=== PATIENT | female | born 1990 | race Caucasian/White ===

== ENCOUNTER 2017-09-27 08:59 | Inpatient (IN) ==
[2017-09-27] MEDS ORDERED: *HR* Ketamine 500 MG/5 ML MDV IVP ONE (09:06)
[2017-09-27] MEDS ORDERED: Ketamine *HR* 500 MG/10 ML MDV ONE (09:15)
[2017-09-27] MEDS ORDERED: Ketamine *HR* 500 MG/10 ML MDV IVP ONE (09:30)
[2017-09-27] MEDS ORDERED: 0.9 % Sodium Chloride 1,000 ML IVC ONE (09:36)
[2017-09-27 09:37] LABS: Basophils # 0.1 K/mcL (0.0-0.2); Basophils % 0.9 %; Eosinophils # 0.3 K/mcL (0.0-0.6); Eosinophils % 1.9 %; Hematocrit 41.9 % (35.3-44.9); Immature Granulocytes % 0.3 % (0-4); Lymphocytes # 2.3 K/mcL (0.6-4.6); Lymphocytes % 17.7 %; Mean Corpuscular HGB Conc 33.4 g/dL (31.6-35.5); Mean Corpuscular Hemoglobin 30.1 pg (28.0-33.3); Mean Corpuscular Volume 90.1 fL (83.0-100.0); Mean Platelet Volume 9.7 fL (9.4-12.4); Monocytes % 7.9 %; Neutrophils # 9.2 K/mcL (1.6-8.9); Platelet Count 302 K/mcL (140-400); Red Blood Count 4.65 M/mcL (3.82-4.97); Red Cell Distribution Width 13.1 % (11.5-14.5); Segmented Neutrophils % 71.3 %
[2017-09-27 09:57] LABS: Bacteria,Urine None Seen per hpf (None-Few); RBC,Urine 0-3 per hpf (0-3); Squamous Epithelial Cell,Urine Many per lpf (None-Few); WBC,Urine TNTC per hpf (0-3)
[2017-09-27 09:59] LABS: Bilirubin,Urine Negative (Negative); Blood,Urine Negative (Negative); Clarity,Urine Clear (Clear); Color,Urine Yellow (Yellow); Glucose,Urine (UA) Normal (Normal); Ketones,Urine 15 mg/dL (Negative); Nitrite,Urine Negative (Negative); Protein,Urine 100 mg/dL (Neg-Trace); Specific Gravity,Urine 1.025 (1.010-1.025); Urobilinogen,Urine Normal (Normal)
[2017-09-27 10:00] LABS: Leukocyte Esterase,Urine Negative (Negative)
[2017-09-27 10:04] LABS: Acetaminophen < 1.0 mcg/mL (10-30); Ethanol < 10 mg/dL (0-10); Salicylate < 5.0 mg/dL (15.0-30.0)
--- NOTE | 2017-09-27 10:22 | Emergency Department Note ---
Overdose - Medical Records Medical records reviewed: Yes I reviewed the patient's medical records. - Lab Data Lab results reviewed: Yes I reviewed the patient's lab results. Result diagrams: 09/27/17 09:30 09/27/17 09:30 Lab Results 09/27/17 09/27/17 09/27/17 Range/Units 09:30 09:30 09:36 WBC 12.9 H (4.3-11.1) K/mcL RBC 4.65 (3.82-4.97) M/mcL Hgb 14.0 (11.5-15.4) g/dL Hct 41.9 (35.3-44.9) % MCV 90.1 (83.0-100.0) fL MCH 30.1 (28.0-33.3) pg MCHC 33.4 (31.6-35.5) g/dL RDW 13.1 (11.5-14.5) % Plt Count 302 (140-400) K/mcL MPV 9.7 (9.4-12.4) fL Immature Gran % 0.3 (0-4) % Seg Neutrophils % 71.3 % Lymphocytes % 17.7 % Monocytes % 7.9 % Eosinophils % 1.9 % Basophils % 0.9 % Neutrophils # 9.2 H (1.6-8.9) K/mcL Lymphocytes # 2.3 (0.6-4.6) K/mcL Monocytes # 1.0 (0.0-1.3) K/mcL Eosinophils # 0.3 (0.0-0.6) K/mcL Basophils # 0.1 (0.0-0.2) K/mcL Sodium 140 (136-145) mEq/L Potassium 3.6 (3.5-5.1) mEq/L Chloride 110 H (98-107) mEq/L Carbon Dioxide 18 L (23-29) mEq/L BUN 17 (6-20) mg/dL Creatinine 0.83 (0.60-1.20) mg/dL Est GFR ( Amer) > 60 (> 60) Est GFR (Non-Af Amer) > 60 (> 60) BUN/Creatinine Ratio 20 (6-26) Glucose 134 H (70-105) mg/dL Calculated Osmolality 294 (280-300) Calcium 9.2 (8.6-10.3) mg/dL Total Bilirubin 0.5 (0.3-1.0) mg/dL Direct Bilirubin 0.1 (0.0-0.2) mg/dL Indirect Bilirubin 0.4 (0.0-1.2) mg/dL AST 15 (13-39) Units/L ALT 13 (7-52) Units/L Alkaline Phosphatase 47 (34-104) Units/L Creatine Kinase 98 (30-223) Units/L Serum Total Protein 7.0 (6.4-8.9) g/dL Albumin 4.7 (3.5-5.7) g/dL Globulin 2.3 L (2.4-3.5) g/dL Albumin/Globulin Ratio 2.0 (1.1-2.2) Ur Specimen Adequacy See below A Urine Color Yellow (Yellow) Urine Clarity Clear (Clear) Urine pH 6.0 (5.0-8.0) pH Units Ur Specific [place] 1.025 (1.010-1.025) Urine Protein 100 H (Neg-Trace) mg/dL Urine Glucose (UA) Normal (Normal) mg/dL Urine Ketones 15 H (Negative) mg/dL Urine Blood Negative (Negative) Urine Nitrite Negative (Negative) Urine Bilirubin Negative (Negative) Urine Urobilinogen Normal (Normal) mg/dL Ur Leukocyte Esterase Negative (Negative) Urine Microscopic RBC 0-3 (0-3) per hpf Urine Microscopic WBC TNTC H (0-3) per hpf Ur Squamous Epith Cells Many H (None-Few) per lpf Urine Bacteria None Seen (None-Few) per hpf Urine Yeast [employer] Salicylates < 5.0 L (15.0-30.0) mg/dL Urine Opiates Screen (Ebecrk=420) ng/mL Acetaminophen < 1.0 L (10-30) mcg/mL Ur Barbiturates Screen (Anezqh=048) ng/mL Ur Phencyclidine Scrn (Cutoff=25) ng/mL Ur Amphetamines Screen (Pytjcd=7745) ng/mL U Benzodiazepines Scrn (Ttihyg=883) ng/mL Urine Cocaine Screen (Cutoff= 300) ng/mL U Marijuana (THC) Screen (Cutoff = 50) ng/mL Ethyl Alcohol < 10 (0-10) mg/dL 09/27/17 Range/Units 09:36 WBC (4.3-11.1) K/mcL RBC (3.82-4.97) M/mcL Hgb (11.5-15.4) g/dL Hct (35.3-44.9) % MCV (83.0-100.0) fL MCH (28.0-33.3) pg MCHC (31.6-35.5) g/dL RDW (11.5-14.5) % Plt Count (140-400) K/mcL MPV (9.4-12.4) fL Immature Gran % (0-4) % Seg Neutrophils % % Lymphocytes % % Monocytes % % Eosinophils % % Basophils % % Neutrophils # (1.6-8.9) K/mcL Lymphocytes # (0.6-4.6) K/mcL Monocytes # (0.0-1.3) K/mcL Eosinophils # (0.0-0.6) K/mcL Basophils # (0.0-0.2) K/mcL Sodium (136-145) mEq/L Potassium (3.5-5.1) mEq/L Chloride (98-107) mEq/L Carbon Dioxide (23-29) mEq/L BUN (6-20) mg/dL Creatinine (0.60-1.20) mg/dL Est GFR ( Amer) (> 60) Est GFR (Non-Af Amer) (> 60) BUN/Creatinine Ratio (6-26) Glucose (70-105) mg/dL Calculated Osmolality (280-300) Calcium (8.6-10.3) mg/dL Total Bilirubin (0.3-1.0) mg/dL Direct Bilirubin (0.0-0.2) mg/dL Indirect Bilirubin (0.0-1.2) mg/dL AST (13-39) Units/L ALT (7-52) Units/L Alkaline Phosphatase (34-104) Units/L Creatine Kinase (30-223) Units/L Serum Total Protein (6.4-8.9) g/dL Albumin (3.5-5.7) g/dL Globulin (2.4-3.5) g/dL Albumin/Globulin Ratio (1.1-2.2) Ur Specimen Adequacy Urine Color (Yellow) Urine Clarity (Clear) Urine pH (5.0-8.0) pH Units Ur Specific [place] (1.010-1.025) Urine Protein (Neg-Trace) mg/dL Urine Glucose (UA) (Normal) mg/dL Urine Ketones (Negative) mg/dL Urine Blood (Negative) Urine Nitrite (Negative) Urine Bilirubin (Negative) Urine Urobilinogen (Normal) mg/dL Ur Leukocyte Esterase (Negative) Urine Microscopic RBC (0-3) per hpf Urine Microscopic WBC (0-3) per hpf Ur Squamous Epith Cells (None-Few) per lpf Urine Bacteria (None-Few) per hpf Urine Yeast Salicylates (15.0-30.0) mg/dL Urine Opiates Screen Negative (Wyhkpk=367) ng/mL Acetaminophen (10-30) mcg/mL Ur Barbiturates Screen Negative (Okamnk=784) ng/mL Ur Phencyclidine Scrn Negative (Cutoff=25) ng/mL Ur Amphetamines Screen Positive H (Bkzcmf=9038) ng/mL U Benzodiazepines Scrn Positive H (Khxjfh=572) ng/mL Urine Cocaine Screen Negative (Cutoff= 300) ng/mL U Marijuana (THC) Screen Positive H (Cutoff = 50) ng/mL Ethyl Alcohol (0-10) mg/dL - Radiology Data Radiology results reviewed: Yes I reviewed the patient's radiology results. - EKG Data EKG attestation: Yes I reviewed and interpreted this EKG. EKG results narrative: EKG shows sinus tachycardia with ventricular rate of 134. [place] interval 140. QRS 100. QTC 388. Patient has no significant ST of elevations. No previous EKG for comparison. Overdose HPI - General Chief Complaint: ED Overdose Stated Complaint: Overdose Time Seen by Provider: 09/27/17 09:03 Source: patient, EMS Limitations: other Nursing Notes Reviewed: Yes Vital Signs Reviewed: Yes - History of Present Illness HPI Narrative: Patient presents for evaluation of overdose. The patient took 30 tablets of lamotrigine 25 mg tablets and 3 tablets of celecoxib. The patient initially presents very agitated with yelling and screaming as well as flight of ideas and random thought association. Patient will not stop talking and crying due to things in her past that upset her. Patient admits to suicidal ideation. An IV was established and the patient was given sedation for her excited delirium. She was given ketamine 2 mg/kg. Patient responded well and is resting comfortably in the bed. Vital signs stable. Boyfriend of 6 months is in the emergency department. States that she has severe depression and bipolar disorder. She was recently started on the lamotrigine. Her episodes of mood disorders range from not wanting to talk to anyone and locking herself in her room for a day to episodes of leia which she is exhibiting today. Most recent stressor was [place] as she was not able to spend it with her kids. Her of 10 years left her approximately 6 months ago. Patient has had problems with rehabilitation. She admits to using methamphetamines recently. A call was placed to poison control. Ketamine was discussed and seems appropriate at this time. Supportive care. Patient will eventually need psych evaluation. No other interventions at this time. - Related Data Home Medications Medication Instructions Recorded Confirmed Ergocalciferol (VITAMIN D2) 50,000 unit PO QWEEK 09/27/17 09/27/17 [Drisdol (50,000 Unit)] Melatonin 10 mg PO HS 09/27/17 09/27/17 lamoTRIgine [Lamictal] 25 mg PO DAILY 09/27/17 09/27/17 Allergies Allergy/AdvReac Type Severity Reaction Status Date / Time No Known Allergies Allergy Verified 08/07/15 08:35 Limitations: ROS unobtainable due to patients medical condition Past Medical History - Past Medical History Medical history: Reports: no medical history, other Surgical history: Reports: Psychiatric history: Reports: bipolar - Social History Smoking Status: Current every day smoker Smokeless Tobacco Status: No Alcohol use: Reports: none Drug use: Reports: cocaine, opiates, methamphetamine Physical Exam General: Patient man with episodes of crying and screaming. Head: Normocephalic Atraumatic Eyes: PERRL, EOMI ENT: Airway patent, no stridor Neck: supple, no meningismus Chest: Lungs clear to auscultation bilateral Cardiac: Regularrhythm, no murmurs, rubs or gallops Abdomen: soft, nontender, nondistended; no guarding, rebound, or tenderness to percussion Musculoskeletal: Calves symmetric, nontender, no palpable cord Skin: No rash, normal skin tone Neuro: Alert and Oriented to person; No focal deficit - General Limitations: other General appearance: alert, anxious Course - Reevaluation(s) Reevaluation #1: Labs are unremarkable. Patient will undergo further observation and management as an inpatient. Patient will need psych evaluation during her stay. - Consultations Consultation #1: Discussed with Hospitalist, Donn Burns, pt accepted Vital Signs Temperature 0 F L 09/27/17 09:07 Pulse Rate 169 09/27/17 09:07 Respiratory Rate 32 09/27/17 09:07 Blood Pressure 141/104 09/27/17 09:07 O2 Sat by Pulse Oximetry 94 09/27/17 09:07 Temperature 98.2 F 09/27/17 12:06 Pulse Rate 94 09/27/17 11:57 Respiratory Rate 20 09/27/17 12:09 Blood Pressure 146/81 09/27/17 12:09 O2 Sat by Pulse Oximetry 100 09/27/17 11:57 Oxygen Delivery Oxygen Delivery Room Air Disposition Clinical Impression: Manic episode, Suicide attempt Overdose Qualifiers: Encounter type: initial encounter Injury intent: undetermined intent Qualified Code(s): T50.904A - Poisoning by unspecified drugs, medicaments and biological substances, undetermined, initial encounter Disposition: Admitted As Inpatient Condition: Good Attestation Statement - Attestation Attestation: I examined this patient and my medical decision-making was reviewed with the Resident Physician. I agree with the documented findings, disposition and treatment plan as described except to the extent set forth below. Patient to ED with intentional overdose. Patient intentionally overdosed on trazodone, Celebrex, and in the line of methamphetamine. On EMS arrival patient is screaming and combative. She was given IM Versed. On arrival here she is awake alert. She is yelling. She is rambling about her past. Thrashing around in the bed. Tachycardic. Plan. Discussed with poison control this states symptomatic care. She is given IV ketamine for sedation. She is tolerating that well this time. Calm and sleeping in bed. Admitted to the hospitalist. Patient reevaluated prior to admission to the floor. Resting comfortably. Vital stable.[place] slip on chart.
[2017-09-27 10:25] LABS: Amphetamine Screen,Urine Positive ng/mL (Cutoff=1000); Barbiturate Screen,Urine Negative ng/mL (Cutoff=200); Benzodiazepines Screen,Urine Positive ng/mL (Cutoff=200); Cannabinoid Screen,Urine Positive ng/mL (Cutoff = 50); Cocaine Screen,Urine Negative ng/mL (Cutoff= 300); Opiate Screen,Urine Negative ng/mL (Cutoff=300); Phencyclidine Screen,Urine Negative ng/mL (Cutoff=25)
[2017-09-27 10:36] LABS: Alanine Aminotransferase 13 Units/L (7-52); Albumin 4.7 g/dL (3.5-5.7); Alkaline Phosphatase 47 Units/L (34-104); Aspartate Amino Transferase 15 Units/L (13-39); BUN/Creatinine Ratio 20 (6-26); Bilirubin,Direct 0.1 mg/dL (0.0-0.2); Bilirubin,Indirect 0.4 mg/dL (0.0-1.2); Bilirubin,Total 0.5 mg/dL (0.3-1.0); Blood Urea Nitrogen 17 mg/dL (6-20); Calcium 9.2 mg/dL (8.6-10.3); Carbon Dioxide 18 mEq/L (23-29); Chloride 110 mEq/L (98-107); Creatine Kinase 98 Units/L (30-223); Globulin 2.3 g/dL (2.4-3.5); Glucose 134 mg/dL (70-105); Osmolality,Calculated 294 (280-300); Potassium 3.6 mEq/L (3.5-5.1); Sodium 140 mEq/L (136-145); eGFR For African Americans > 60 (> 60); eGFR For Non-African Americans > 60 (> 60)
[2017-09-27] MEDS ORDERED: Naloxone 0.4 MG/ML INJ IVP PRN (12:39)
--- NOTE | 2017-09-27 12:44 | Internal Med History&Physical ---
<Donn Burns J - Last Filed: 09/27/17 21:34> Date of Encounter: 09/27/17 Time of Encounter: 12:43 Assessment and Plan (1) Suicide attempt Status: Acute Patient attempted suicide this morning after starting amphetamines. She is admitted with an overdose of Lamictal taking approximately 30 tablets as well as 3 tablets of Celebrex because voices in her head told her to do so. Poison control called no further actions to be done with the exception of monitoring. Patient is very manic upon arrival to the emergency department and required ketamine for sedation. She is now alert and calm her my assessment however does go in and out of some mild leia, pulse appear flighty and incoherent at times. [id number] sitter Psychiatric consultation, spoke with psychiatrist was agreed to see the patient today (2) Overdose Status: Acute See plan above Qualifiers: Encounter type: initial encounter Injury intent: undetermined intent Qualified Code(s): T50.904A - Poisoning by unspecified drugs, medicaments and biological substances, undetermined, initial encounter (3) Manic episode Status: Acute Has improved this time however, continue to monitor due to the fact the patient also ingested amphetamines this morning. (4) DVT prophylaxis Status: Acute Heparin 5000 units subcutaneous twice a day Internal Medicine - H&P: HPI Chief complaint: SUICIDE ATTEMPT Admitted From: Home Plans for Post Hospital Care: Home History of present illness: Ms. Jacinto is a 26 year old female following a suicide attempt. The patient was reporting taking 30 tablets of Lamictal and Celebrex. Has a history of bipolar depression. However, she reports that she snorted amphetamine this morning and began to hear voices. Urine drug screen positive for methamphetamines, benzodiazepines and marijuana. He reports that the Voices resulted in suicide attempt. Poison Control Center was consulted while patient in the emergency department and recommended further monitoring. Initially upon presentation the patient is very manic and required ketamine for sedation. Upon my assessment she is calm and cooperative, denies any current auditory hallucinations but continues to admit to suicidal ideation. Past Med Surg Social Fam HX - Past Medical History Medical history: no medical history, other Psychiatric history: bipolar - Past Surgical History Surgical History: - Social History Smoking Status: Current every day smoker Smokeless Tobacco Status: No Alcohol use: none Drug use: cocaine, opiates, methamphetamine - Additional Family History Additional family history: Noncontributory Internal Medicine - H&P: Meds lamoTRIgine [Lamictal] 25 mg PO DAILY 09/27/17 [History] DiphenhydraMINE [Benadryl] 25 mg PO HS PRN capsule 09/28/17 [Rx] Venlafaxine XR (24 HR) [Effexor XR] 75 mg PO DAILY 30 Days #30 cap.er.24h [Rx] hydrOXYzine pamoate [HydrOXYzine Pamoate] 25 mg PO TID PRN 30 Days #90 capsule 10/04/17 [Rx] 3 Allergy/AdvReac Type Severity Reaction Status Date / Time No Known Allergies Allergy Verified 08/07/15 08:35 All Systems PM: A 10-system review of systems was performed and is negative for pertinent findings except as documented above in the HPI. Review of systems: REVIEW OF SYSTEMS GENERAL: Negative for any nausea, vomiting, fevers, chills, or weight loss. NEUROLOGIC: Negative for any blurry vision, blind spots, double vision, facial asymmetry, dysphagia, dysarthria, hemiparesis, hemisensory deficits, vertigo, ataxia. HEENT: Negative for any head trauma, neck trauma, neck stiffness, photophobia, phonophobia, sinusitis, rhinitis. CARDIAC: Negative for any chest pain, dyspnea on exertion, paroxysmal nocturnal dyspnea, peripheral edema. PULMONARY: Negative for any shortness of breath, wheezing, COPD, or TB exposure. GASTROINTESTINAL: Negative for any abdominal pain, nausea, vomiting, bright red blood per rectum, melena. GENITOURINARY: Negative for any dysuria, hematuria, incontinence. INTEGUMENTARY: Negative for any rashes, cuts, insect bites. RHEUMATOLOGIC: Negative for any joint pains, photosensitive rashes, history of vasculitis or kidney problems. HEMATOLOGIC: Negative for any abnormal bruising, frequent infections or bleeding. Psychiatric assessment: Positive for auditory hallucinations, suicidal ideation and suicidal attempt. - Constitutional Vitals: Temp Pulse Resp BP Pulse Ox 98.2 F 94 20 146/81 100 09/27/17 12:06 09/27/17 11:57 09/27/17 12:09 09/27/17 12:09 09/27/17 11:57 General appearance: Present: cooperative, A&O X 3, no acute distress, answers questions appropriately Exam: PHYSICAL EXAMINATION: GENERAL: The patient is a well-developed, well-nourished male in no apparent distress. He is alert and oriented x3. VITAL SIGNS: Temperature 98.0, respiratory rate of 20 and 100% on 2 L nasal cannula. Blood pressure 106/81 HEENT: Head is normocephalic and atraumatic. Extraocular muscles are intact. Pupils are equal, round, and reactive to light and accommodation. Nares appeared normal. Mouth is well hydrated and without lesions. Mucous membranes are moist. Posterior pharynx clear of any exudate or lesions. NECK: Supple. No carotid bruits. No lymphadenopathy or thyromegaly. LUNGS: Clear to auscultation. HEART: Regular rate and rhythm without murmur. ABDOMEN: Soft, nontender, and nondistended. Positive bowel sounds. No hepatosplenomegaly was noted. EXTREMITIES: Without any cyanosis, clubbing, rash, lesions or edema. NEUROLOGIC: Cranial nerves II through XII are grossly intact. PSYCHIATRIC: Patient appears mildly manic, gently rocking back and forth in bed. She is alert and participatory to exam. She does not appear to have adequate insight or judgment. Thought processes are often flaky and incoherent , and somewhat inappropriate to situation. SKIN: No ulceration or induration present. Internal Med - H&P Results - Labs CBC & Chem 7: 09/27/17 09:30 09/27/17 09:30 <Marilin Dewitt - Last Filed: 10/22/17 08:20> Date of Encounter: 10/22/17 Internal Medicine - H&P: HPI History of present illness: Ms. Jacinto is a 26 year old female All Systems PM: A 10-system review of systems was performed and is negative for pertinent findings except as documented above in the HPI. - Constitutional Vitals: Temp Pulse Resp BP Pulse Ox 98.0 F 83 16 100/66 99 09/28/17 15:32 09/28/17 15:32 09/28/17 15:32 09/28/17 15:32 09/28/17 15:32 Internal Med - H&P Results - Labs CBC & Chem 7: 09/28/17 04:26 09/28/17 04:26 - Attending Attestation I personally and independently interviewed and examined the patient with [employer], and I reviewed the patient's medical record with her. I am in agreement with the assessment and proposed treatment plan. I discussed my findings and recommendation with the patient and answer all questions. The patient's medical records were edited to accurately reflect this encounter.
[2017-09-27] MEDS: 0.9 % Sodium Chloride 1,000 ML IVC SCH ×2 (14:01→23:15)
[2017-09-27] MEDS: Nicotine 14 MG PATCH.TD24 TD SCH (15:54)
[2017-09-27] MEDS: *HR* Heparin 5,000 UNIT/ML VIAL SQ SCH (18:09)
[2017-09-28 06:10] LABS: Basophils # 0.1 K/mcL (0.0-0.2); Basophils % 0.9 %; Eosinophils # 0.5 K/mcL (0.0-0.6); Hematocrit 34.3 % (35.3-44.9); Immature Granulocytes % 0.3 % (0-4); Lymphocytes % 39.9 %; Mean Corpuscular HGB Conc 32.7 g/dL (31.6-35.5); Mean Corpuscular Hemoglobin 30.4 pg (28.0-33.3); Mean Corpuscular Volume 93.2 fL (83.0-100.0); Mean Platelet Volume 10.4 fL (9.4-12.4); Monocytes # 0.9 K/mcL (0.0-1.3); Monocytes % 11.4 %; Platelet Count 218 K/mcL (140-400); Red Blood Count 3.68 M/mcL (3.82-4.97); Red Cell Distribution Width 13.2 % (11.5-14.5); Segmented Neutrophils % 40.5 %
[2017-09-28 06:11] LABS: Hemoglobin 11.2 g/dL (11.5-15.4)
[2017-09-28 06:19] LABS: Alanine Aminotransferase 10 Units/L (7-52); Albumin 3.7 g/dL (3.5-5.7); Albumin/Globulin Ratio 1.9 (1.1-2.2); Alkaline Phosphatase 38 Units/L (34-104); Aspartate Amino Transferase 11 Units/L (13-39); BUN/Creatinine Ratio 19 (6-26); Bilirubin,Total 0.5 mg/dL (0.3-1.0); Blood Urea Nitrogen 12 mg/dL (6-20); Calcium 8.4 mg/dL (8.6-10.3); Carbon Dioxide 23 mEq/L (23-29); Chloride 114 mEq/L (98-107); Glucose 97 mg/dL (70-105); Osmolality,Calculated 290 (280-300); Potassium 3.7 mEq/L (3.5-5.1); Sodium 140 mEq/L (136-145); Total Protein 5.7 g/dL (6.4-8.9); eGFR For African Americans > 60 (> 60); eGFR For Non-African Americans > 60 (> 60)
[2017-09-28] MEDS: Nicotine 14 MG PATCH.TD24 TD SCH (08:14)
[2017-09-28] MEDS: *HR* Heparin 5,000 UNIT/ML VIAL SQ SCH (08:15)
[2017-09-28] MEDS ORDERED: Nystatin Cream 15 GM TUBE TP SCH (09:00)
--- NOTE | 2017-09-28 14:47 | Discharge Summary ---
Date of Encounter: 09/28/17 Time of Encounter: 09:00 - Discharge Diagnosis (1) Overdose Priority: Primary Status: Acute Comments: Patient reports knowingly taken 30 tablets of Lamictal and Celebrex. She also admits to snorting amphetamines the morning of arrival. She reports the onset of auditory hallucinations after amphetamine use. Patient reports that the voices that she hears told her to kill herself, she, however, declines wanting to harm herself. Urine drug screens positive for methamphetamine, benzodiazepines, and marijuana. Poison control had been consulted by ER physicians, they recommend continued monitoring. In the emergency department, patient was very manic and required ketamine for sedation. Patient is calm, cooperative during assessment this morning. She is hesitant to answer questions regarding her hallucinations. Her fiance is at bedside and answers most questions. Patient is been evaluated by psychiatry, I appreciate his consultation and recommendations. Patient will be admitted to mental health unit for evaluation. Qualifiers: Encounter type: initial encounter Injury intent: undetermined intent Qualified Code(s): T50.904A - Poisoning by unspecified drugs, medicaments and biological substances, undetermined, initial encounter (2) Auditory hallucinations Priority: Secondary Status: Acute Comments: Patient reports hearing a mixture of female and male voices. She reports that they call her "dumb bitch", they say, "keep doing what you're doing and stop what you're doing', and "kill yourself." Plan as above. (3) Manic episode Priority: Secondary Status: Chronic Comments: Patient's fiance at bedside states the patient cycles approximately every 3 weeks. She states that she will be manic, and she cries and stays in bed for 2 days and is angry, agitated, accuses him of various wrong dose his Coumadin. He states then she goes back to good for a few days of the cycle begins again. He reports the patient has been on multiple medications, medications and been changed frequently. Currently she only reports Lamictal as a medication she takes at home. Patient will be observed on 1A. (4) Suicide attempt Priority: Secondary Status: Acute Comments: Plan as above. (5) DVT prophylaxis Priority: Secondary Status: Acute Comments: Heparin subcutaneous. - Discharge Medications Home Medications: Ergocalciferol (VITAMIN D2) [Drisdol (50,000 Unit)] 50,000 unit PO QWEEK [History] Melatonin 10 mg PO HS 09/27/17 [History] lamoTRIgine [Lamictal] 25 mg PO DAILY 09/27/17 [History] Calcium Carbonate [Tums] 1,000 mg PO TID tab.chew 09/28/17 [Rx] DiphenhydraMINE [Benadryl] 25 mg PO HS PRN capsule 09/28/17 [Rx] Nicotine Patch [Nicoderm] 14 mg TD DAILY patch.td24 09/28/17 [Rx] Nystatin Cream [Mycostatin Cream] 1 appl TP BID tube 09/28/17 [Rx] Allergies/Adverse Reactions: 3 Allergy/AdvReac Type Severity Reaction Status Date / Time No Known Allergies Allergy Verified 08/07/15 08:35 Date of admission: 09/27/17 12:39 Primary care physician: PCP NONE Consults: 09/27/17 13:40 Consult to [facility] [CONS] Routine Reason for SW Consult: Drug abuse Discharging clinician: Alina Ayala Anticipated date of discharge: 09/28/17 - Patient Status Disposition: Transfer Psychiatric Hosp Condition: Good Functional capacity at discharge: independent ambulation Overall status at discharge: patient is not back to baseline - Discharge Instructions Follow Up With: NONE,PCP [Primary Care Provider] - Additional Instructions: Pt to be discharged to for evaulation. - Diet and Activity Activity: increase activity as tolerated Diet: advance to your usual diet Hospital course: Ms. Jacinto is a 26 year old female with significant medical history of bipolar disorder, mood disorder. Patient presents to the emergency department with complaint of suicide attempt. Patient was manic on arrival and required ketamine for sedation. Patient took approximately 30 Celebrex and Lamictal after "the voices" told her to kill herself. Patient reports recent history of auditory hallucinations, denies visual hallucinations. Patient denies headache , nausea, vomiting, dizziness, blurred vision, abdominal pain, chest pain or shortness of breath. Patient will be admitted to his mental health unit for observation and evaluation. Patient is stable and appropriate for discharge. - Time Spent with Patient Total time spent providing and/or coordinating discharge services: Less than 30 minutes - Constitutional Vitals: Temp Pulse Resp BP Pulse Ox 98.0 F 77 16 92/55 98 09/28/17 11:40 09/28/17 11:40 09/28/17 11:40 01/02/18 11:40 09/28/17 11:40 General appearance: Present: cooperative, A&O X 3, no acute distress, answers questions appropriately - Head Head exam: Present: atraumatic, normal inspection, normocephalic - Eye Eye exam: Present: normal appearance, conjuntiva pink, sclera anicteric - Neck Neck exam general surgery: Present: normal inspection, supple, trachea midline. Absent: lymphadenopathy, tenderness - Respiratory Respiratory exam: Present: CTAB. Absent: accessory muscle use, chest wall tenderness, decreased breath sounds, rales, respiratory distress, rhonchi, wheezes - Cardiovascular Cardiovascular exam: Present: RRR, +S1, +S2. Absent: diastolic murmur, gallop, rubs, systolic murmur - GI/Abdominal GI/Abdominal exam: Present: normal bowel sounds, soft. Absent: distended, hepatomegaly, tenderness - Extremities Exam Extremities exam: Present: normal capillary refill, normal inspection, warm, radial pulses palpable and symmetrical. Absent: calf tenderness, cyanotic, pedal edema, tenderness - Neurological Exam Neurological exam: Present: alert, oriented X3, no focal deficits. Absent: facial droop, speech deficit - Skin Skin exam: Present: dry, intact, normal color, warm. Absent: rash
[2017-09-28 15:32] VITALS: BP 100/66
--- NOTE | 2017-09-28 16:44 | Electrocardiograph Report ---
[address] [address] Test Date: 2017-09-27 Pat Name: Lety Jacinto Department: 102 Room: 3B24 Gender: F Regular Senior Care Provider: : [id number] Requested By: Mitali See Order Number: [id number] Reading MD: Cole Neri Measurements Intervals [place] Rate: 134 P: 84 PA: 140 QRS: 84 QRSD: 100 T: 66 QT: 309 QTc: 388 Interpretive Statements SINUS TACHYCARDIA INCOMPLETE RIGHT BUNDLE BRANCH BLOCK NONSPECIFIC T-WAVE ABNORMALITY Electronically Signed On 09-28-2017 16:43:17 EST by Cole Neri
== END 2017-09-28 16:20 | DRG 817 ==
LOC: 3BNU 08:59 → EMEROO 08:59 → 3BNU 12:25
PROVIDERS: ADMIT Nurse Practitioner; ATTEND Registered Nurse

== ENCOUNTER 2021-05-29 17:40 | Inpatient (IN) ==
[2021-05-29 18:30] LABS: Basophils # 0.1 K/mcL (0.0-0.2); Basophils % 0.8 %; Eosinophils # 0.2 K/mcL (0.0-0.6); Eosinophils % 1.6 %; Hematocrit 40.1 % (35.3-44.9); Hemoglobin 13.9 g/dL (11.5-15.4); Immature Granulocytes % 0.3 % (0-4); Lymphocytes % 22.9 %; Mean Corpuscular HGB Conc 34.7 g/dL (31.6-35.5); Mean Corpuscular Hemoglobin 30.7 pg (28.0-33.3); Mean Corpuscular Volume 88.5 fL (83.0-100.0); Monocytes % 7.6 %; Neutrophils # 8.7 K/mcL (1.6-8.9); Platelet Count 296 K/mcL (140-400); Red Blood Count 4.53 M/mcL (3.82-4.97); Red Cell Distribution Width 13.5 % (11.5-14.5); Segmented Neutrophils % 66.8 %
[2021-05-29 18:52] LABS: Bacteria,Urine Few per hpf (None-Few); Bilirubin,Urine Negative (Negative); Blood,Urine Negative (Negative); Clarity,Urine Clear (Clear); Color,Urine Light-Yellow (Yellow); Glucose,Urine (UA) Normal (Normal); Ketones,Urine Negative (Negative); Leukocyte Esterase,Urine Trace (Negative); Mucus,Urine Few per lpf (None-Few); Nitrite,Urine Negative (Negative); PH,Urine 6.5 pH Units (5.0-8.0); Protein,Urine Negative (Neg-Trace); RBC,Urine 0-3 per hpf (0-3); Specific Gravity,Urine 1.012 (1.010-1.025); Squamous Epithelial Cell,Urine Few per hpf (None-Few); Urobilinogen,Urine Normal (Normal); WBC,Urine 0-3 per hpf (0-3)
[2021-05-29 19:57] LABS: Acetaminophen < 10 mcg/mL (10-20); BUN/Creatinine Ratio 6 (6-26); Blood Urea Nitrogen 4 mg/dL (6-20); Calcium 9.2 mg/dL (8.6-10.3); Carbon Dioxide 20 mEq/L (23-29); Chloride 107 mEq/L (98-107); Ethanol < 10 mg/dL (Less than 10); Glucose 104 mg/dL (70-105); Osmolality,Calculated 285 (280-300); Potassium 3.4 mEq/L (3.5-5.1); Salicylate < 2.5 mg/dL (15.0-30.0); Sodium 139 mEq/L (136-145); eGFR For African Americans > 60 (> 60); eGFR For Non-African Americans > 60 (> 60)
[2021-05-29 20:35] LABS: Amphetamine Screen,Urine Negative ng/mL (Cutoff=1000); Barbiturate Screen,Urine Negative ng/mL (Cutoff=200); Benzodiazepines Screen,Urine Negative ng/mL (Cutoff=200); Cannabinoid Screen,Urine Negative ng/mL (Cutoff = 50); Cocaine Screen,Urine Negative ng/mL (Cutoff= 300); Opiate Screen,Urine Negative ng/mL (Cutoff=300); Phencyclidine Screen,Urine Negative ng/mL (Cutoff=25)
[2021-05-29 22:43] LABS: Influenza A PCR Negative (Negative); Influenza B PCR Negative (Negative); Resp. Syncytial Virus PCR Negative (Negative)
[2021-05-29 22:50] LABS: SARS-CoV-2 by PCR (In House) Negative (Negative)
[2021-05-29] MEDS ORDERED: Haloperidol Lactate 5 MG/ML VIAL IM PRN (23:13)
[2021-05-29] MEDS ORDERED: QUEtiapine Fumarate 25 MG TABLET PO PRN (23:13)
[2021-05-29] MEDS ORDERED: *HR* LORazepam 2 MG/ML VIAL IM PRN (23:13)
[2021-05-29] MEDS ORDERED: Acetaminophen 325 MG TABLET PO PRN (23:13)
[2021-05-29] MEDS ORDERED: hydrOXYzine pamoate 25 MG CAPSULE PO PRN (23:13)
[2021-05-29] MEDS ORDERED: *HR* LORazepam 1 MG TABLET PO PRN (23:13)
[2021-05-29] MEDS ORDERED: haloperidoL 5 MG TABLET PO PRN (23:13)
[2021-05-29] MEDS ORDERED: Ibuprofen 400 MG TABLET PO PRN (23:13)
[2021-05-30] MEDS: Nicotine 21 MG PATCH.TD24 TD SCH (09:15)
[2021-05-30] MEDS ORDERED: Mag Hydrox/Al Hydrox/Simeth 30 ML UDC PO PRN (09:15)
[2021-05-30] MEDS ORDERED: MOM Conc 10 ML UD.LIQ PO PRN (09:15)
[2021-05-31] MEDS: Nicotine 21 MG PATCH.TD24 TD SCH (09:20)
[2021-06-01] MEDS: Nicotine 21 MG PATCH.TD24 TD SCH (10:02)
[2021-06-02] MEDS: Nicotine 21 MG PATCH.TD24 TD SCH (08:48)
[2021-06-02 09:40] VITALS: BP 116/79; PULSE 84; TEMP 98.1; O2SAT 97
== END 2021-06-02 12:30 | disposition home or self-care (01) | DRG 751 ==
LOC: EMEROOARM 17:40 → 1ANU 23:13
PROVIDERS: ADMIT Psychiatry & Neurology Psychiatry; ATTEND Psychiatry & Neurology Psychiatry

== ENCOUNTER 2021-07-11 18:50 | Inpatient (IN) ==
[2021-07-11 19:41] LABS: Basophils # 0.1 K/mcL (0.0-0.2); Eosinophils # 0.3 K/mcL (0.0-0.6); Eosinophils % 2.9 %; Hematocrit 39.5 % (35.3-44.9); Hemoglobin 13.2 g/dL (11.5-15.4); Immature Granulocytes % 0.2 % (0-4); Lymphocytes # 2.9 K/mcL (0.6-4.6); Lymphocytes % 27.8 %; Mean Corpuscular HGB Conc 33.4 g/dL (31.6-35.5); Mean Corpuscular Hemoglobin 30.1 pg (28.0-33.3); Monocytes # 0.8 K/mcL (0.0-1.3); Monocytes % 7.3 %; Neutrophils # 6.4 K/mcL (1.6-8.9); Platelet Count 248 K/mcL (140-400); Red Blood Count 4.39 M/mcL (3.82-4.97); Segmented Neutrophils % 60.8 %; White Blood Count 10.5 K/mcL (4.3-11.1)
[2021-07-11 19:43] LABS: Bacteria,Urine Few per hpf (None-Few); Bilirubin,Urine Negative (Negative); Blood,Urine Large (Negative); Clarity,Urine Clear (Clear); Color,Urine Light-Yellow (Yellow); Glucose,Urine (UA) Normal (Normal); Ketones,Urine Negative (Negative); Leukocyte Esterase,Urine Moderate (Negative); Mucus,Urine Few per lpf (None-Few); Nitrite,Urine Negative (Negative); Protein,Urine Negative (Neg-Trace); RBC,Urine 0-3 per hpf (0-3); Specific Gravity,Urine 1.009 (1.010-1.025); Squamous Epithelial Cell,Urine Few per hpf (None-Few); Urobilinogen,Urine Normal (Normal)
[2021-07-11 19:52] LABS: Amphetamine Screen,Urine Negative ng/mL (Cutoff=1000); Barbiturate Screen,Urine Negative ng/mL (Cutoff=200); Benzodiazepines Screen,Urine Negative ng/mL (Cutoff=200); Cannabinoid Screen,Urine Negative ng/mL (Cutoff = 50); Cocaine Screen,Urine Negative ng/mL (Cutoff= 300); Opiate Screen,Urine Negative ng/mL (Cutoff=300); Phencyclidine Screen,Urine Negative ng/mL (Cutoff=25)
[2021-07-11 20:06] LABS: Acetaminophen < 10 mcg/mL (10-20); Alanine Aminotransferase 9 Units/L (7-52); Albumin 4.3 g/dL (3.5-5.7); Albumin/Globulin Ratio 1.9 (1.1-2.2); Alkaline Phosphatase 58 Units/L (34-104); Aspartate Amino Transferase 10 Units/L (13-39); BUN/Creatinine Ratio 13 (6-26); Bilirubin,Indirect 0.3 mg/dL (0.0-1.0); Bilirubin,Total 0.3 mg/dL (0.3-1.0); Blood Urea Nitrogen 8 mg/dL (6-20); Calcium 8.9 mg/dL (8.6-10.3); Carbon Dioxide 24 mEq/L (23-29); Chloride 109 mEq/L (98-107); Chol/HDL Ratio 5.1 (0-4.9); Cholesterol 180 mg/dL (< 200); Ethanol < 10 mg/dL (Less than 10); Globulin 2.3 g/dL (2.4-3.5); Glucose 103 mg/dL (70-105); HDL Cholesterol 35 mg/dL (40-59); LDL Cholesterol,Calculated 112 mg/dL (< 100); Osmolality,Calculated 289 (280-300); Potassium 3.6 mEq/L (3.5-5.1); Salicylate < 2.5 mg/dL (15.0-30.0); Sodium 140 mEq/L (136-145); Total Protein 6.6 g/dL (6.4-8.9); Triglycerides 164 mg/dL (< 150); eGFR For African Americans > 60 (> 60); eGFR For Non-African Americans > 60 (> 60)
[2021-07-11 20:16] LABS: Thyroid Stimulating Hormone 0.507 mcIU/mL (0.340-5.600)
[2021-07-11 21:17] LABS: Estimated Average Glucose 108 mg/dl; Hemoglobin A1C 5.4 %
[2021-07-12 00:50] LABS: Influenza A PCR Negative (Negative); Influenza B PCR Negative (Negative); Resp. Syncytial Virus PCR Negative (Negative)
[2021-07-12 00:52] LABS: SARS-CoV-2 by PCR (In House) Negative (Negative)
[2021-07-12] MEDS ORDERED: Haloperidol Lactate 5 MG/ML VIAL IM PRN (01:09)
[2021-07-12] MEDS ORDERED: *HR* LORazepam 2 MG/ML VIAL IM PRN (01:09)
[2021-07-12] MEDS ORDERED: MOM Conc 10 ML UD.LIQ PO PRN (08:25)
[2021-07-12] MEDS ORDERED: Mag Hydrox/Al Hydrox/Simeth 30 ML UDC PO PRN (08:25)
[2021-07-12] MEDS: Ziprasidone 20 MG CAPSULE PO SCH (20:41)
[2021-07-12] MEDS: hydrOXYzine pamoate 25 MG CAPSULE PO PRN (20:41)
[2021-07-13] MEDS: Ziprasidone 20 MG CAPSULE PO SCH ×2 (10:36→20:29)
[2021-07-13] MEDS: hydrOXYzine pamoate 25 MG CAPSULE PO PRN (20:30)
[2021-07-13] MEDS: QUEtiapine Fumarate 25 MG TABLET PO PRN (20:30)
[2021-07-14] MEDS: Ziprasidone 20 MG CAPSULE PO SCH ×2 (08:40→20:35)
[2021-07-15] MEDS: Ziprasidone 20 MG CAPSULE PO SCH ×2 (08:52→20:38)
[2021-07-15] MEDS: hydrOXYzine pamoate 25 MG CAPSULE PO PRN ×2 (10:41→20:38)
[2021-07-15] MEDS: QUEtiapine Fumarate 25 MG TABLET PO PRN (20:38)
[2021-07-16] MEDS: QUEtiapine Fumarate 25 MG TABLET PO PRN (00:59)
[2021-07-16] MEDS: Ziprasidone 20 MG CAPSULE PO SCH ×2 (08:59→20:24)
[2021-07-16] MEDS: QUEtiapine Fumarate 100 MG TABLET PO SCH (20:24)
[2021-07-16] MEDS: *HR* LORazepam 1 MG TABLET PO PRN (21:27)
[2021-07-16] MEDS: haloperidoL 5 MG TABLET PO PRN (21:27)
[2021-07-17] MEDS: Ziprasidone 20 MG CAPSULE PO SCH ×2 (09:45→20:38)
[2021-07-17] MEDS: *HR* LORazepam 1 MG TABLET PO PRN ×2 (11:02→19:25)
[2021-07-17] MEDS: haloperidoL 5 MG TABLET PO PRN ×2 (11:02→19:25)
[2021-07-17] MEDS: QUEtiapine Fumarate 100 MG TABLET PO SCH (20:38)
[2021-07-17] MEDS: Ibuprofen 400 MG TABLET PO PRN (22:15)
[2021-07-17] MEDS: hydrOXYzine pamoate 25 MG CAPSULE PO PRN (22:48)
[2021-07-17] MEDS: Acetaminophen 325 MG TABLET PO PRN (22:48)
[2021-07-18] MEDS: Ziprasidone 20 MG CAPSULE PO SCH ×2 (09:57→20:35)
[2021-07-18] MEDS: Acetaminophen 325 MG TABLET PO PRN ×2 (10:37→20:35)
[2021-07-18] MEDS: hydrOXYzine pamoate 25 MG CAPSULE PO PRN (10:37)
[2021-07-18] MEDS: Ibuprofen 400 MG TABLET PO PRN ×2 (15:27→22:22)
[2021-07-18] MEDS: QUEtiapine Fumarate 300 MG TABLET PO SCH (20:35)
[2021-07-18] MEDS: haloperidoL 5 MG TABLET PO PRN (22:22)
[2021-07-18] MEDS: *HR* LORazepam 1 MG TABLET PO PRN (22:23)
[2021-07-19] MEDS: Ziprasidone 20 MG CAPSULE PO SCH (08:17)
[2021-07-19] MEDS: QUEtiapine Fumarate 100 MG TABLET PO SCH (12:46)
[2021-07-19] MEDS: *HR* LORazepam 1 MG TABLET PO PRN (15:51)
[2021-07-19] MEDS: haloperidoL 5 MG TABLET PO PRN (15:51)
[2021-07-19] MEDS: QUEtiapine Fumarate 300 MG TABLET PO SCH (21:44)
[2021-07-20] MEDS: Acetaminophen 325 MG TABLET PO PRN (04:01)
[2021-07-20] MEDS: QUEtiapine Fumarate 100 MG TABLET PO SCH (09:27)
[2021-07-20] MEDS: Ibuprofen 400 MG TABLET PO PRN ×2 (16:56→22:12)
[2021-07-20] MEDS: hydrOXYzine pamoate 25 MG CAPSULE PO PRN (20:57)
[2021-07-20] MEDS ORDERED: QUEtiapine Fumarate 100 MG TABLET PO SCH (21:00)
[2021-07-21] MEDS: QUEtiapine Fumarate 100 MG TABLET PO SCH ×2 (08:45→20:24)
[2021-07-21] MEDS: haloperidoL 5 MG TABLET PO PRN (12:51)
[2021-07-21] MEDS: Acetaminophen 325 MG TABLET PO PRN ×2 (12:51→20:24)
[2021-07-21] MEDS: *HR* LORazepam 1 MG TABLET PO PRN (12:51)
[2021-07-22] MEDS: Acetaminophen 325 MG TABLET PO PRN (18:49)
[2021-07-22] MEDS: Ibuprofen 400 MG TABLET PO PRN (20:33)
[2021-07-22] MEDS: hydrOXYzine pamoate 25 MG CAPSULE PO PRN (20:33)
[2021-07-22] MEDS: QUEtiapine Fumarate 100 MG TABLET PO SCH (20:33)
[2021-07-23] MEDS: Acetaminophen 325 MG TABLET PO PRN (14:13)
[2021-07-23] MEDS: QUEtiapine Fumarate 100 MG TABLET PO SCH (20:27)
[2021-07-23] MEDS: Ibuprofen 400 MG TABLET PO PRN (20:27)
[2021-07-23] MEDS: hydrOXYzine pamoate 25 MG CAPSULE PO PRN (22:20)
[2021-07-24] MEDS ORDERED: QUEtiapine Fumarate 100 MG TABLET PO SCH (09:00)
[2021-07-24] MEDS: Ibuprofen 400 MG TABLET PO PRN (16:50)
[2021-07-24] MEDS: risperiDONE 1 MG TABLET PO SCH (20:24)
[2021-07-24] MEDS ORDERED: QUEtiapine Fumarate 300 MG TABLET PO SCH (21:00)
[2021-07-24] MEDS ORDERED: risperiDONE 1 MG TABLET PO ONE (21:00)
[2021-07-25] MEDS: risperiDONE 1 MG TABLET PO SCH ×2 (08:30→20:36)
[2021-07-25] MEDS: QUEtiapine Fumarate 100 MG TABLET PO SCH (20:36)
[2021-07-25] MEDS: hydrOXYzine pamoate 25 MG CAPSULE PO PRN (22:44)
[2021-07-26] MEDS: risperiDONE 1 MG TABLET PO SCH ×2 (08:36→20:22)
[2021-07-26] MEDS: QUEtiapine Fumarate 100 MG TABLET PO SCH (20:21)
[2021-07-26] MEDS: hydrOXYzine pamoate 25 MG CAPSULE PO PRN (22:24)
[2021-07-26] MEDS: QUEtiapine Fumarate 25 MG TABLET PO PRN (23:57)
[2021-07-27] MEDS: risperiDONE 1 MG TABLET PO SCH ×2 (08:27→21:02)
[2021-07-27] MEDS: hydrOXYzine pamoate 25 MG CAPSULE PO PRN (18:30)
[2021-07-27] MEDS: Acetaminophen 325 MG TABLET PO PRN (18:30)
[2021-07-27] MEDS: QUEtiapine Fumarate 100 MG TABLET PO SCH (21:02)
[2021-07-28] MEDS: risperiDONE 1 MG TABLET PO SCH ×2 (08:45→20:57)
[2021-07-28] MEDS ORDERED: Paliperidone Palmitate 234 MG/1.5 ML SYRINGE IM SCH (12:30)
[2021-07-28] MEDS: hydrOXYzine pamoate 25 MG CAPSULE PO PRN (20:57)
[2021-07-29] MEDS: risperiDONE 1 MG TABLET PO SCH ×2 (08:19→20:45)
[2021-07-29] MEDS: Acetaminophen 325 MG TABLET PO PRN (14:47)
[2021-07-29] MEDS: hydrOXYzine pamoate 25 MG CAPSULE PO PRN (20:46)
[2021-07-30] MEDS: risperiDONE 1 MG TABLET PO SCH ×2 (08:47→19:59)
[2021-07-30] MEDS: hydrOXYzine pamoate 25 MG CAPSULE PO PRN (19:59)
[2021-07-30 20:12] VITALS: BP 101/69
[2021-07-31] MEDS: risperiDONE 1 MG TABLET PO SCH (10:13)
[2021-07-31 10:59] VITALS: PULSE 84; TEMP 99.1; O2SAT 97
[2021-07-31] MEDS ORDERED: Paliperidone Palmitate 156 MG/ML SYRINGE IM SCH (13:00)
== END 2021-07-31 17:00 | disposition home or self-care (01) | DRG 751 ==
LOC: EMEROOARM 18:50 → 1ANU 07-12 01:15
PROVIDERS: ADMIT Psychiatry & Neurology Psychiatry; ATTEND Psychiatry & Neurology Psychiatry